=== PATIENT | female | born 1965 | race Caucasian/White ===

== ENCOUNTER 2019-09-09 05:37 | Inpatient (IN) | payer MEDICARE, OTHER ==
[2019-09-09] MEDS ORDERED: THROMBIN (RECOMBINANT) 20,000 UNIT VIAL TP ONE (08:48)
[2019-09-09] MEDS ORDERED: LIDOCAINE HCL 2% PF 100MG/5ML VIAL IJ ONE (08:48)
[2019-09-09] MEDS ORDERED: BUPIV. HCL 0.5% (5MG/ML)/EPI. (1:200,000) PF 30 ML VIAL IJ ONE (08:48)
[2019-09-09] MEDS ORDERED: PROPOFOL 200 MG/20 ML VIAL IV ONE (08:48)
[2019-09-09] MEDS ORDERED: ceFAZolin SODIUM 1 GM VIAL ONE (08:48)
[2019-09-09] MEDS ORDERED: ROCURONIUM BROMIDE 10 MG/ML 5ML VIAL ONE (08:48)
[2019-09-09] MEDS ORDERED: DEXAMETHASONE SODIUM PHOSPHATE 10 MG/ML VIAL ONE (08:48)
[2019-09-09] MEDS ORDERED: LACTATED RINGERS 1,000 ML IV.SOLN IV ONE (08:48)
[2019-09-09] MEDS ORDERED: ONDANSETRON HCL/PF 4 MG/ 2ML VIAL ONE (08:48)
[2019-09-09] MEDS ORDERED: MORPHINE SULFATE 10 MG/ML VIAL ONE (08:48)
[2019-09-09] MEDS ORDERED: MIDAZOLAM HCL 2 MG/2 ML VIAL ONE (08:48)
[2019-09-09] MEDS ORDERED: GELATIN SPONGE,ABSORB/PORCINE (SIZE 100) 1 EACH SPONGE TP ONE (08:48)
[2019-09-09] MEDS ORDERED: SUGAMMADEX SODIUM 200 MG/2 ML VIAL IV ONE (08:48)
[2019-09-09] MEDS ORDERED: BACITRACIN 50,000 UNIT VIAL IR ONE (08:48)
[2019-09-09] MEDS ORDERED: SEVOFLURANE 250 ML LIQUID IH ONE (08:48)
[2019-09-09] MEDS ORDERED: HYDROmorphone HCL/PF 1 MG/ML VIAL ONE ×2 (10:19→10:43)
[2019-09-09] MEDS ORDERED: LORazepam 2 MG/ML VIAL ONE (10:41)
[2019-09-09] MEDS ORDERED: fentaNYL CITRATE/PF 100 MCG/2 ML INJ. ONE (10:52)
[2019-09-09 11:56] VITALS: BMI 24.1
[2019-09-09] MEDS ORDERED: ONDANSETRON HCL/PF 4 MG/ 2ML VIAL IVP PRN (12:23)
[2019-09-09] MEDS ORDERED: oxyCODONE/ACETAMINOPHEN 5/325 TABLET PO PRN ×2 (12:23)
[2019-09-09] MEDS ORDERED: diazePAM 5 MG TABLET PO PRN (12:32)
[2019-09-09] MEDS ORDERED: ALBUTEROL 90MCG/PUFF INHALER IH PRN (12:32)
--- NOTE | 2019-09-09 12:39 | History and Physical Report ---
History of Present Illnes - History of Present Illness Reason for Visit: Chronic neck pain History of Present Illness: This is a 54 year old female admitted with chronic neck pain not responsive to conservative measures. She was seen by Dr. Saunders and felt that her symptoms could be addressed with ACDF, and removal of previously placed hardware. 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) Heme/Onc: Other (Breast cancer, cervical cancer) Psych: Anxiety, Depression, Other (Insomnia) Endocrine: Other (Vitamin D deficiency) - Past Surgical History Past Surgical History: Hysterectomy, Other (Shoulder surgery, oophorectomy, foot surgery) - Past Social History Smoke: 1 pack per day Alcohol: Rare Drugs: None Lives: With Family Domestic Violence: Negative - Health Maintenance Health Maintenance: Cholesterol Pneumonia Vaccine: Yes Resuscitation Status: Resusciation Status Resuscitation Status Full Code - Unable to Obtain History Unable to Obtain: No Review of Systems - Review of Systems Constitutional: negative: Fever, Chills, Sweats Eyes: negative: pain ENT: negative: Ear Pain, Ear Discharge Respiratory: negative: Cough Cardiovascular: negative: Chest Pain Gastrointestinal: negative: Nausea, Vomiting Genitourinary: negative: Dysuria Musculoskeletal: Neck Pain Skin: negative: Rash Neurological: negative: Weakness, Confusion, Seizures - Medications/Allergies Current Inpatient Medications: Current Inpatient Medications Fentanyl Citrate (Sublimaze) 100 mcg IVP Q2H PRN PRN Reason: For Severe Pain 8-10 Stop: 09/10/19 12:22 Heparin Sodium (Porcine) (Heparin) 5,000 unit SQ Q12 GELACIO Stop: 10/09/19 20:59 Cefazolin Sodium 1 gm/ Sodium (Chloride) 50 mls @ 100 mls/hr IV Q8H [facility] Stop: 09/09/19 21:59 Ondansetron HCl (Zofran) 4 mg IVP Q6H PRN PRN Reason: Nausea / Vomiting Stop: 09/13/19 12:22 Oxycodone/Acetaminophen (Percocet 5-325) 1 each PO Q4 PRN PRN Reason: For pain 1-4 out of 10 Stop: 10/09/19 12:22 Oxycodone/Acetaminophen (Percocet 5-325) 2 each PO Q4 PRN PRN Reason: Moderate pain 5-7 Stop: 10/09/19 12:22 Exam - Exam Vital Signs: Vital Signs (72 hours) 09/09/19 09/09/19 09/09/19 11:20 11:51 11:52 Temperature 97.9 F 97.9 F 97.9 F Pulse Rate [ 90 90 90 Right] Respiratory 18 18 18 Rate Blood Pressure [Left Arm] Blood Pressure 149/97 149/97 149/97 [Right Arm] O2 Sat by Pulse 97 97 97 Oximetry 09/09/19 12:01 Temperature 98.4 F Pulse Rate [ 88 Right] Respiratory 18 Rate Blood Pressure 148/88 [Left Arm] Blood Pressure [Right Arm] O2 Sat by Pulse 97 Oximetry General: Alert, Oriented to Person, Oriented to Place, Moderate distress HEENT: Atraumatic, PERRLA, EOMI, Anicteric Sclerae Neck: Other (Dressing has only a small amount of bleeding noted.). No: Stridor, Rigidity Lungs: Clear to auscultation, Normal air movement, Speaks full Sentences Cardiovascular: Regular rate Murmur: No: Systolic Murmur Abdomen: Normal bowel sounds, Soft, No tenderness Genitourinary: No: Other Male Genitourinary: No: Other Female Genitourinary: No: Other Integumentary: Normal, [place], Warm, Dry Extremities: No clubbing, No cyanosis, No edema Neurological: Normal gait, Normal speech Psych/Mental Status: Mental status NL Assessment/Plan - Assessment/Plan (1) Chronic neck pain Status: Acute Current Visit: Yes Assessment: S/P ACDF and hardware removal (2) Multiple sclerosis Status: Acute Current Visit: Yes Assessment: Chronic, progressive Plan: Continue Augagio (3) Depression Status: Acute Current Visit: Yes Qualifiers: Depression Type: major depressive disorder Major depression recurrence: recurrent Active/Remission status: currently active Major depression episode severity: moderate Qualified Code(s): F33.1 - Major depressive disorder, recurrent, moderate Assessment: Continue bupropion (4) Anxiety Status: Acute Current Visit: Yes (5) Insomnia Status: Acute Current Visit: Yes Qualifiers: Insomnia type: primary Qualified Code(s): F51.01 - Primary insomnia Assessment: Continue lorazepam at hs as well as trazodone (6) Panlobular emphysema Status: Acute Current Visit: Yes Assessment: Continue Advair and Proair inhalers. VTE Assessment - RISK FACTOR SCORE VTE RISK FACTOR SCORES: AGE 40-60 YEARS, ANTICIPATED BED CONFINEMENT OR IMMOBILIZATION > 24 HOURS - RISK VTE MODERATE RISK: SCORE OF 2 (RISK PROXIMAL DVT 2-4%) PROPHYAXIS NEEDED (On heparin)
[2019-09-09] MEDS ORDERED: HYDROcodone /APAP 10/325 1 EACH TABLET PO PRN (12:51)
[2019-09-09] MEDS ORDERED: PATIENT OWN MED 1 EACH EACH PO PRN (12:57)
[2019-09-09] MEDS: fentaNYL CITRATE/PF 100 MCG/2 ML INJ. IVP PRN ×2 (13:09→17:00)
[2019-09-09] MEDS ORDERED: ceFAZolin SODIUM 1 GM in 0.9 % SODIUM CHLORIDE 50 ML IV SCH (13:30)
[2019-09-09] MEDS ORDERED: HYDROcodone /APAP 10/325 1 EACH TABLET PO ONE (17:53)
[2019-09-09 17:55] VITALS: BP 144/99
--- NOTE | 2019-09-09 17:55 | Discharge Summary ---
Discharge Summary - Discharge Lety Admission Date: 09/09/19 Discharge Date: 09/09/19 Discharge To: Home History of Present Illness: his is a 54 year old female admitted with chronic neck pain not responsive to conservative measures. She was seen by Dr. Saunders and felt that her symptoms could be addressed with ACDF, and removal of previously placed hardware. Condition at Discharge: Stable Consultations this Visit: None Procedures this Visit: None Patient Problems: Current Active Problems Problem Status Onset Anxiety Acute Chronic neck pain Acute Depression Acute Insomnia Acute Multiple sclerosis Acute Panlobular emphysema Acute Hospital Course: The patient came to the floor, and soon therafter decided that she needed to go home. She is discharged to home with resumption of her previous medications. Follow up with Dr. Saunders as scheduled.
[2019-09-09] MEDS ORDERED: FLUTICASONE PROPIONATE 50 MCG BLST.W.DEV IH SCH (21:00)
[2019-09-09] MEDS ORDERED: HEPARIN SODIUM 5000 UNIT/1 ML SQ SCH (21:00)
[2019-09-09] MEDS ORDERED: MUPIROCIN 2% TP SCH (21:00)
[2019-09-09] MEDS ORDERED: buPROPion 150 MG TAB.ER.12H PO SCH (21:00)
[2019-09-09] MEDS ORDERED: hydrOXYzine HCL 25 MG TABLET PO SCH (21:00)
[2019-09-09] MEDS ORDERED: FLUTICASONE/SALMETEROL 250-50 INHALER IH SCH (21:00)
[2019-09-09] MEDS ORDERED: LORazepam 1 MG TABLET PO SCH (21:00)
[2019-09-09] MEDS ORDERED: traZODone HCL 50 MG TABLET PO SCH (21:00)
[2019-09-10] MEDS ORDERED: PATIENT OWN MED 1 EACH EACH PO SCH (09:00)
[2019-09-10] MEDS ORDERED: MULTIVITAMIN 1 EACH TABLET PO SCH (09:00)
[2019-09-10] MEDS ORDERED: VITAMIN E 400 UNIT CAPSULE PO SCH (09:00)
[2019-09-10] MEDS ORDERED: CHOLECALCIFEROL (VIT-D3) 1,000 UNIT TABLET PO SCH (09:00)
[2019-09-10] MEDS ORDERED: POLYETHYLENE GLYCOL 3350 17 GM POWD.PACK PO SCH (11:00)
--- NOTE | 2019-09-12 15:54 | Operative Note ---
PROCEDURE DATE: 09/09/2019 PREOPERATIVE DIAGNOSIS: 1. Degenerative disc disease, C4-5. 2. Degenerative disc disease, C6-7. 3. Spinal stenosis, C4-5. 4. Spinal stenosis, C6-7. 5. Foraminal stenosis, C4-5. 6. Foraminal stenosis, C6-7. 7. Previous fusion, C5-6. POSTOPERATIVE DIAGNOSIS: 1. Degenerative disc disease, C4-5. 2. Degenerative disc disease, C6-7. 3. Spinal stenosis, C4-5. 4. Spinal stenosis, C6-7. 5. Foraminal stenosis, C4-5. 6. Foraminal stenosis, C6-7. 7. Previous fusion, C5-6. PROCEDURES PERFORMED: 1. Removal of cervical instrumentation (code 41256). 2. Anterior arthrodesis, C4-5 (code 20763). 3. Anterior arthrodesis, C6-7 (code 21490). 4. Insertion interbody titanium prosthesis, C4-5 (code 24523). 5. Insertion interbody titanium prosthesis, C6-7 (code 38076-01). 6. Anterior instrumentation, four level, C4 to C7 (code 69355). 7. Autograft morselized from same incision (code 21773). 8. Allograft pellet post inspector (code 58182). 9. Fluoroscopy (code 38564-79) for localization. SURGEON: Michelle Saunders M.D. MORTGAGE LOAN PROCESSOR: ALYSSA Herrera. ANESTHESIA: General via endotracheal tube. ESTIMATED BLOOD LOSS: 50 mL. COMPLICATIONS: None. INDICATIONS: The patient has had intractable neck and arm pain. This is accompanied by radiculopathy in the form of numbness, tingling and weakness of the arms. The patient truly represents a multimodality conservative treatment failure. She has requested that we proceed with operative intervention. She understands the risks of surgery to be , DVT, pulmonary embolism, quadriplegia, loss of the use of the arms and legs, numbness, tingling, weakness, incoordination, loss of the ability to ambulate, loss of bowel and bladder function, loss of sexual function, possibility of bleeding, bleeding requiring transfusion, transfusion-attendant risks of AIDs and hepatitis, infection, instability, the need for revision, prolonged hospital stay, dural leak, spinal headache, and again she requested we proceed. DESCRIPTION OF PROCEDURE: The patient was brought to the operating room and administered general anesthesia via endotracheal tube. An esophageal stethoscope was placed. Perioperative antibiotic was received before the incision. The patient had 10 of Decadron administered. She was positioned on the radiolucent Zay table with a bump between the scapulae to afford scapular retraction in a supine position. The arms were carefully padded, tucked and taped to the sides. The hips and knees were flexed over two pillows and the heels were on gel. In this neck-neutral position, the anterior aspect of the neck was defatted with alcohol, visualized under fluoroscopy, and the previous incision on the left that had allowed a previous C5-6 fusion was chosen. It was extended somewhat medially and laterally. The incision was carried down through the scar and the scarred subcu to the level of the platysma. Flaps were then undermined. A small self-retaining retractor was placed. The platysma was elevated between two forceps at the anterior border of the sternocleidomastoid and split in combination in line with its fibers and at the anterior border of the sternocleidomastoid. The sternocleidomastoid was elevated off the scarred oblique strap muscles and the middle cervical fascia, and the carotid was palpated. Blunt dissection was then accomplished with a Kittner dissector to the midline and a standard anterior medial approach to the spine. The plate was visualized under a thin veil of scar. The scar was incised with cautery and it was removed. The plate was overgrown with bone at C5-6 and osteotomes and a mallet were used to essentially osteotomize the bone from the plate so that we could gain access to the screws. The upper two screws of the plate disengaged easily. The bottom two screws had to be drilled out. Eventually, the plate was removed. The previous anterior instrumentation at C5- 6 now removed, we were able to identify the cephalad-most disc space. C4-5 was identified. It was isolated. The subperiosteal exposure was performed from C4 to C7. We then violated the anterior aspect of the disc with cautery and performed an anterior annulectomy. We inserted distraction pins in C4 and C5, and very little distraction could be obtained. We continued the discectomy, removing as much as possible. We removed the anterior lip of C4 to give us a straight flat seating surface for the interbody prosthesis and to give us more working room and good visualization. This bone was also morselized and represented portions of our local bone graft harvest. We then turned our attention to further removal of the disc and the discectomy was taken back to the posterior margins of the vertebrae. We inserted a Sawyer and, with a twisting maneuver, were able to gain some further distraction of the interspace, and this eventually resulted in enough working room and visualization to remove the posterior spondylitic ridge of C5. I then performed medial half uncovertebral joint resections to affect a posterior neural foraminotomy bilaterally at C4-5. With the posterior neural foraminotomy complete, we did take down the posterior longitudinal ligament to dura to ensure that there was no evidence of any encumbrance on the spinal sac at the disc space level. When the nerve roots probed completely free, we scuffed the endplates with a high-speed drill, used a titanium prosthesis pack with the patient's morselized local bone and graft pellet post inspector/synthetic bone, and packed the titanium implant that was inserted under distraction into the C4-5 space. The distraction was then released and the distraction pin of C4 and C5 were removed. We then turned our attention to the C6-7 level disc and performed exactly the same procedure. Distraction pins were placed both cephalad and caudad to the interspace. We performed an anterior annulectomy, removed the anterior spondylitic portion of C6, completed the discectomy back to the posterior vertebral margin, used a Sawyer to gain further interspace distraction, removed the posterior spondylitic ridge of C7 with a 2- mm Kerrison, took down the posterior longitudinal ligament to dura, and then performed posterior neural foraminal decompressions by decompressing the neural foramen completely with the 2-mm Kerrison via medial half uncovertebral joint resections. With the decompression complete at C6-7, nerve roots probing completely free and dura well visualized and nondisplaced, we scuffed the endplates, templated the appropriate-sized 8-mm titanium prosthesis, packed it with the patient's local bone and the synthetic graft pellet post inspector, and tamped it into place under distraction at the C6-7 level. Distraction pins were removed and then the anterior plate instrumentation was applied from C4 over C5 and C6 to C7. This was secured with screws, 14 mm in length, and checked under AP and lateral fluoroscopy representing the next in a series of serial fluoroscopic evaluations requiring an exposure and interpretation. With the plate in excellent position, we used the converging drill guide to place two additional screw holes in C4 and C7, and 16-mm screws were used to fill these holes. The last few turns of the screw as far as tightening invoked the locking mechanism of the plate. We checked a final AP and lateral fluoroscopy view and found our cervical lordosis to be restored. All disc space heights were restored. The plate was in superb position, centered exactly on the midline on the AP, well- applied on the lateral, contoured to restore the cervical lordosis. The patient tolerated the procedure well to this point. With the final x-rays looking superb, we were able to copiously irrigate with a liter or antibiotic-containing solution. We were able to obtain meticulous hemostasis. We then reapproximated the platysma with 3-0 Vicryl, the subcu with 3-0 Vicryl, and closed the skin with a running 4-0 Monocryl to obtain a good subcutaneous closure. We applied benzoin, Steri-Strips, Xeroform sterile dressing sponges, and a Bioclusive. A soft collar was applied. The patient was being transported to the PACU, having tolerated this procedure well. Final blood loss was 50 mL. There were no technical misadventures. There were no complications. The patient seemed physiologically stable throughout. MICHELLE SAUNDERS M.D. SHWETA/[email or web address] (Please copy [facility] provider when applicable) Job #[id number] [email or web address]
== END 2019-09-09 18:45 | disposition home or self-care (01) | DRG 472 ==
LOC: OPSURG 05:37 → SOUTH 11:20
PROVIDERS: ADMIT Family Medicine; ATTEND Family Medicine
PROC: 0RG20A0 Fusion of 2 or more Cervical Vertebral Joints with Interbody Fusion Device, Anterior Approach, Anterior Column, Open Approach (ICD-10-PCS; principal; 2019-09-09)
PROC: 0RT30ZZ Resection of Cervical Vertebral Disc, Open Approach (ICD-10-PCS; 2019-09-09)
PROC: 01N10ZZ Release Cervical Nerve, Open Approach (ICD-10-PCS; 2019-09-09)
PROC: 0RP10AZ Removal of Interbody Fusion Device from Cervical Vertebral Joint, Open Approach (ICD-10-PCS; 2019-09-09)
DX: M50.121 Cervical disc disorder at C4-C5 level with radiculopathy (principal); F33.1 Major depressive disorder, recurrent, moderate; M48.02 Spinal stenosis, cervical region; G89.29 Other chronic pain; F41.9 Anxiety disorder, unspecified; F17.210 Nicotine dependence, cigarettes, uncomplicated; G35 Multiple sclerosis; F51.01 Primary insomnia; J43.1 Panlobular emphysema; Z85.3 Personal history of malignant neoplasm of breast; Z85.41 Personal history of malignant neoplasm of cervix uteri; Z90.710 Acquired absence of both cervix and uterus; Z98.1 Arthrodesis status; Z79.899 Other long term (current) drug therapy; Z79.51 Long term (current) use of inhaled steroids
CPT/HCPCS: 20930; 22551; 22552; 22845; 22853; 22855; 86885; 86900; 86901; 86920; 99238; C1762; J0690; J1170; J2001; J2060; J2250; J2270; J2405; J2704; J3010; J3490; J7120